=== PATIENT | male | born 1995 | race Asian ===

== ENCOUNTER 2019-01-22 18:18 | Emergency (ER) | payer OTHER ==
[~2019-01-22] VITALS: Ht 175.3 cm; Wt 81.6 kg
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
[2019-01-22] MEDS ORDERED: Lidocaine 2% 20mg/ml/EPI 0.01mg/ml 20ml INJ ONE (18:45)
[2019-01-22] MEDS ORDERED: Bacitracin Oint UD TOPIC ONE (18:45)
[2019-01-22] MEDS ORDERED: Tetanus/Diptheria/Pertussis IM ONE (18:45)
--- NOTE | 2019-01-22 18:50 | NUR ---
ED Nurse Note: TDAP vaccine given to right deltoid, per patient's request
--- NOTE | 2019-01-22 19:11 | NUR ---
HAND-OFF: Report given to JAMMIE MARTINI.
[2019-01-22] MEDS ORDERED: CEPHALEXIN500 MG ORAL (19:12)
[2019-01-22] MEDS ORDERED: IBUPROFEN600 MG ORAL (19:12)
--- NOTE | 2019-01-22 19:50 | NUR ---
ED Nurse Note: pt cleared to be d/c per ER provider, pt discharge and aftercare instruction provided w/ prescription, pt education done via discussion and handout, pt advised to follow up with pcp or return to ed, pt verbalized understanding and agrees with plan, suture done by ER provider, intact, dressing applied, pt left w/ all belongings accompanied by friend.
[2019-01-22 19:51] VITALS: BP 121/75
== END 2019-01-22 19:53 | disposition home or self-care (01) ==
LOC: EDSEX 18:18 → EMR 18:42
DX: S91.312A Laceration without foreign body, left foot, initial encounter (principal); S80.212A Abrasion, left knee, initial encounter; Z23 Encounter for immunization; M25.571 Pain in right ankle and joints of right foot; W05.2XXA Fall from non-moving motorized mobility scooter, initial encounter; Y92.9 Unspecified place or not applicable
CPT/HCPCS: 90471; 90715; 99283